=== PATIENT | male | born 1970 | race Asian ===

== ENCOUNTER 2024-05-19 14:05 | Emergency (ER) | payer OTHER ==
[2024-05-19 14:26] VITALS: BP 131/77; PULSE 72; RESP 19; TEMP 98.2; BMI 28.2
== END 2024-05-19 16:06 | disposition home or self-care (01) ==
LOC: JERFT 14:05
DX: S30.810A Abrasion of lower back and pelvis, initial encounter (principal); W54.0XXA Bitten by dog, initial encounter
CPT/HCPCS: 99283-25